=== PATIENT | female | born 1945 | race Caucasian/White ===

== ENCOUNTER 2018-02-02 14:52 | Emergency (ER) | payer OTHER ==
[~2018-02-02] VITALS: Ht 162.6 cm; Wt 92.1 kg
[2018-02-02 15:01] VITALS: BP_SYST 163
[2018-02-02 16:50] VITALS: BP_SYST 142
== END 2018-02-02 16:50 | disposition home or self-care (01) ==
LOC: SED 14:52
DX: K59.09 Other constipation (principal); E11.9 Type 2 diabetes mellitus without complications; J45.909 Unspecified asthma, uncomplicated; I10 Essential (primary) hypertension; F41.9 Anxiety disorder, unspecified; E78.5 Hyperlipidemia, unspecified; Z90.49 Acquired absence of other specified parts of digestive tract; Z90.710 Acquired absence of both cervix and uterus; Z88.2 Allergy status to sulfonamides; Z88.1 Allergy status to other antibiotic agents; Z88.5 Allergy status to narcotic agent; Z91.018 Allergy to other foods; Z91.013 Allergy to seafood
CPT/HCPCS: 99282